=== PATIENT | female | born 2000 | race Caucasian/White ===

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

== ENCOUNTER 2021-04-04 12:49 | Outpatient (CLI) | payer MEDICAID ==
[2019-11-25 17:41] VITALS: BMI 30.4
[~2021-04-04 12:49] MED LIST changes: +COLACE100 MG PO; +HYDROCODON-ACE1 EAC7 PO
[2021-04-04 14:52] LABS: BILIRUBIN NEGATIVE (NEGATIVE); KETONE NEGATIVE (NEGATIVE); NITRITE NEGATIVE (NEGATIVE); PH 7.5 (5.0-8.0); UROBILINOGEN NORMAL mg/dL (< 2)
[2021-04-04 14:56] LABS: SQUAMOUS EPITHELIAL 0-5 HPF (0-4); WHITE CELLS - URINE 0-5 HPF (0-4)
[2021-04-04 14:57] LABS: BACTERIA MODERATE HPF (NONE SEEN)
== END 2021-04-04 16:42 | disposition home or self-care (01) ==
LOC: D.LDO 12:49
PROVIDERS: ATTEND Student in an Organized Health Care Education/Training Program
DX: O35.9XX0 Maternal care for (suspected) fetal abnormality and damage, unspecified, not applicable or unspecified (principal)